=== PATIENT | female | born 1940 | race Caucasian/White ===

== ENCOUNTER 2016-10-23 15:14 | Emergency (ER) | payer MEDICARE, BC ==
[2016-10-23] MEDS ORDERED: METOPROLOL TARTRATE 5 MG/5 ML SOL IV ONE ×2 (15:44→15:59)
[2016-10-23] MEDS ORDERED: METOPROLOL TARTRATE 25 MG TAB ONE (15:44)
[2016-10-23 15:45] LABS: BASOPHILS % (AUTO) 1 % (0-3); EOSINOPHILS % (AUTO) 2 % (0-9); HEMATOCRIT 40 % (35-47); MEAN CORPUSCULAR VOLUME 87 fL (81-99); MONOCYTES % (AUTO) 8.7 % (0-12); NEUTROPHILS % (AUTO) 60.3 % (37-80)
[2016-10-23] MEDS ORDERED: METOPROLOL TARTRATE 50 MG TAB PO SCH (15:45)
[2016-10-23] MEDS ORDERED: SODIUM CHLORIDE 0.9% 1000 ML SOL IV SCH (15:45)
[2016-10-23] MEDS: METOPROLOL TARTRATE 5 MG/5 ML SOL IV SCH ×3 (15:50→16:03)
[2016-10-23] MEDS ORDERED: SODIUM CHLORIDE 0.9% FLUSH 10 ML SOL IV PRN (16:03)
[2016-10-23 16:09] LABS: CALCIUM 8.7 mg/dl (8.5-10.1); GLOM FILT RATE 54 mL/min (>60); POTASSIUM 3.2 mMol/L (3.5-5.1); SODIUM 144 mMol/L (136-145); THYROID STIMULATING HORMONE 0.904 uIU/ml (0.358-3.740)
[2016-10-23] MEDS ORDERED: POTASSIUM CHLORIDE 10 MEQ TER PO ONE (16:15)
[2016-10-23] MEDS ORDERED: POTASSIUM CHLORIDE 10 MEQ TER ONE (16:17)
[2016-10-23 17:21] VITALS: TEMP 97.6
[2016-10-23 17:29] VITALS: RESP 14
[2016-10-23 17:32] VITALS: BP 106/47; PULSE 71; O2SAT 99
== END 2016-10-23 17:14 | disposition home or self-care (01) | DRG 310 ==
LOC: ED 15:14
DX: R00.2 Palpitations (principal); E87.6 Hypokalemia
CPT/HCPCS: 36415; 80048; 84443; 84484; 85025; 93005; 96365; 96374; 99284; 99285